=== PATIENT | male | born 1960 | race Caucasian/White ===

== ENCOUNTER → 2017-01-11 | Outpatient (REF) ==
--- NOTE | 2017-01-12 02:31 | REP ---
Clinical: Pain and disability. Technique: AP, lateral, coned-down views of the lumbar spine. Findings: Three views of the lumbosacral spine demonstrate satisfactory alignment and lordosis without acute or chronic fracture / compression injury. Mild underlying osteopenia suggested a long with mild to early moderate multilevel degenerative changes including marginal spurring, endplate sclerosis and minimal disc space narrowing at the L5-S1 level. Chronic spondylolysis at L5 cannot be excluded without associated spondylolisthesis. Impression: Mild diffuse osteopenia and mild to moderate multilevel degenerative changes as described above primarily noted at the L5-S1 level. No acute or chronic fracture / compression injury. Signed by Wade Mars MD 01/12/2017 02:22 A
== END ==
LOC: M SMT 11:58
PROVIDERS: ATTEND Internal Medicine
DX: Z02.1 Encounter for pre-employment examination (principal)